=== PATIENT | male | born 1940 | race Two or more races ===

== ENCOUNTER → 2024-03-04 10:37 | Outpatient (REF) | payer OTHER, MEDICARE, SELFPAY ==
[2024-03-04 11:25] LABS: Hematocrit 32.6 % (39.0-52.0); Hemoglobin 9.7 g/dL (13.0-18.0); Mean Corp Hgb Conc. 29.8 g/dL (33.0-37.0); Mean Corpuscular Hgb 23.7 pg (27.0-31.0); Mean Corpuscular Volume 79.7 fL (80.0-94.0); Mean Platelet Volume 10.4 fL (7.4-10.4); Platelet Count 309 10^3/uL (130-400); Red Blood Cell Count 4.09 10^6/uL (4.70-6.10); Red Cell Dist. Width 18.1 % (11.5-14.5); White Blood Cell Count 11.1 10^3/uL (4.8-10.8)
[2024-03-04 11:30] LABS: ALT (SGPT) < 10 U/L (0-50); AST (SGOT) 17 U/L (17-59); Alkaline Phosphatase 56 U/L (38-126); Blood Urea Nitrogen 30 mg/dl (9-20); Calcium 9.1 mg/dl (8.4-10.2); Carbon Dioxide 22 mmol/L (22-30); Chloride 103 mmol/L (98-107); Glucose 157 mg/dl (70-99); Magnesium 1.8 mg/dl (1.6-2.3); Potassium 4.3 mmol/L (3.5-5.1); Sodium 140 mmol/L (135-145); Total Bilirubin 0.6 mg/dl (0.2-1.3); Total Protein 6.6 g/dl (6.3-8.2); eGFR 59.26
[2024-03-04 14:02] LABS: Glycohemoglobin (HgbA1c) 7.5 % (4.0-5.6)
== END ==
LOC: OLABWHC 10:37
PROVIDERS: ATTENDING PHYSICIAN Family Medicine
DX: R68.0 Hypothermia, not associated with low environmental temperature (principal); E11.9 Type 2 diabetes mellitus without complications; I10 Essential (primary) hypertension; I48.0 Paroxysmal atrial fibrillation; I50.33 Acute on chronic diastolic (congestive) heart failure
CPT/HCPCS: 36415; 80053; 83036; 83735; 85027

== ENCOUNTER 2024-03-08 21:54 | Emergency (ER) | payer OTHER, MEDICARE, SELFPAY ==
[2024-03-08 21:55] VITALS: BP 146/73; BMI 24.4
[2024-03-08 21:58] VITALS: BP 146/73
[2024-03-08 22:00] VITALS: BP 138/78
[2024-03-08 22:31] LABS: % Basophils 1.2 % (0-2); % Eosinophils 2.5 % (0-6); % Immature Granulocytes 0.5 % (0-0.5); % Lymphocytes 27.4 % (20.5-51.1); % Monocytes 6.7 % (1.7-9.3); % Neutrophils 61.7 % (42.2-75.2); Absolute Basophils 0.1 10^3/uL (0-0.2); Absolute Eosinophils 0.3 10^3/uL (0-0.7); Absolute Immature Granulocytes 0.1 10^3/uL (0-0.05); Absolute Lymphocytes 2.9 10^3/uL (1.2-3.4); Absolute Monocytes 0.7 10^3/uL (0.1-0.6); Absolute Neutrophils 6.4 10^3/uL (1.4-6.5); Hematocrit 33.2 % (39.0-52.0); Hemoglobin 9.9 g/dL (13.0-18.0); Mean Corp Hgb Conc. 29.8 g/dL (33.0-37.0); Mean Corpuscular Hgb 22.7 pg (27.0-31.0); Mean Platelet Volume 10.3 fL (7.4-10.4); Nucleated Red Blood Cells % 0 % (-); Platelet Count 394 10^3/uL (130-400); Red Blood Cell Count 4.37 10^6/uL (4.70-6.10); Red Cell Dist. Width 18.2 % (11.5-14.5); White Blood Cell Count 10.4 10^3/uL (4.8-10.8)
--- NOTE | 2024-03-08 22:42 | ED.GENMED ---
History of Present Illness
General
Chief Complaint: Breathing Problem
Source: patient
Exam Limitations: none
Time Seen by Provider: 03/08/24 22:36
History of Present Illness
History of Present Illness:
See MDM
Past History
Past History
ED Past Medical History: Arrthythmia and HTN
ED Past Surgical History: None
Social History
Tobacco: Non-smoker
Alcohol: None
Phy Exam
Physical Exam
Physical Exam:
See MDM
Scores
Heart Failure Risk
Heart Failure Risk Score: Yes
History of Stroke or TIA: No
History of intubation for respiratory distress: No
Heart rate on ED arrival >/= 110: No
SaO2 <90% on arrival on room air: Yes
HR >/=110 during 3min walk test (or too ill to perform test): No
ECG has acute ischemic changes: No
Urea >/=12mmol/L (BUN 33.6mg/dL): No
Serum CO2>/=35mmol/L: No
Troponin I or T elevated to [place] Level (0.4mg/dL): No
NT-proBNP >/=5,000ng/L (5,000pg/ml): No
HF Risk Score: 1
Admission Status: MEDIUM RISK 5.1% Consider observation or discharge to home with homecare & f/u visit to PCP/[employer] Architecture Analyst, or SNF for treatment
Course
Orders/Labs/Results
Orders:
Orders
03/08/24 22:10
Electrocardiogram (*1) Urgent
Reason for Study: Chest Pain
Cardiac Monitoring- Treatment ONCE
EKG- Treatment ONCE
IV Insert/Care/Rem.- Treatment PRN
O2 Therapy [RESP] Urgent
Titrate/Wean O2 to maintain O2 sat greater than (%): 90
Special Instructions: Maintain sats >/=90%
Pulse Ox/spot Check [RESP] Urgent
Quantity: 1
Special Instructions: ON ROOM AIR
03/08/24 22:21
BNP [NT-proBNP] Urgent
Complete Blood Count/With Diff Urgent
Troponin I Urgent
03/08/24 22:42
CR Chest - 2 Views Urgent
Comment:
Reason For Exam: SOB, cough
03/08/24 22:47
Comprehensive Metabolic Panel Urgent
Abnormal Lab Results
03/08/24 03/08/24
22:21 22:47
RBC 4.37 L 10^6/uL
(4.70-6.10)
Hgb 9.9 L g/dL
(13.0-18.0)
Hct 33.2 L %
(39.0-52.0)
MCV 76.0 L fL
(80.0-94.0)
MCH 22.7 L pg
(27.0-31.0)
MCHC 29.8 L g/dL
(33.0-37.0)
RDW 18.2 H %
(11.5-14.5)
Abs Immat Gran (auto) 0.1 H 10^3/uL
(0-0.05)
Absolute Monos (auto) 0.7 H 10^3/uL
(0.1-0.6)
Carbon Dioxide 18 L mmol/L
(22-30)
BUN 27 H mg/dl
(9-20)
Glucose 231 H mg/dl
(70-99)
03/08/24 22:21
03/08/24 22:47
Vital Signs
Initial and Last Documented VS:
Initial Vital Signs
Temp Pulse Resp BP Pulse Ox
97.8 F 91 27 146/73 98
03/08/24 21:55 03/08/24 21:55 03/08/24 21:55 03/08/24 21:55 03/08/24 21:55
Last Documented Vital Signs
Temp Pulse Resp BP Pulse Ox
97.8 F 92 26 144/73 92
03/08/24 21:55 03/09/24 00:15 03/09/24 00:15 03/09/24 00:00 03/09/24 00:15
MDM/Problems Addressed
Differential Diagnosis Includes:
HPI and MDM Narrative:
83-year-old male presenting for evaluation of shortness of breath. Patient states he was complaining of shortness of breath earlier but symptoms have resolved. He is normally on 2 L nasal cannula. EMS stating that the facility had increase his
oxygen to 6 L. Patient is on 2 L currently and not hypoxic. Patient is in no respiratory distress. He denies leg swelling, cough or fever. Patient appears confused why he was sent to the emergency department but states he feels comfortable going
home. Will obtain basic blood work and chest x-ray
Physical exam
General: Well appearing and non-toxic. Sitting in bed comfortably and in no acute distress
HEENT: protecting airway
Neck: appears supple
CV: No evidence of cyanosis. Regular rate, irregular rhythm
Resp: No accessory muscle use. Lungs appear clear
Abd: Non-distended
Extremities: No deformities. No leg edema
Neuro: alert
Psych: Normal affect
Skin: Intact
Problems Addressed including Acute and Chronic Conditions affecting care:
1. Resolving shortness of breath
Acuity: acute
Prognosis: stable
Details: Given his history, will obtain chest x-ray. EKG shows A-fib. Prior history indicates history of A-fib. Since he has a history of congestive heart failure, will obtain chest x-ray, troponin and BNP
Updates
Chest x-ray without evidence of pneumonia or pleural effusions. Patient remains well-appearing nontoxic. We discussed lab abnormalities including anemia and mildly elevated BNP. It is unsure what his baseline is. Regardless, he is in no acute
distress. Discussed having this reassessed by his primary
On multiple reassessments, patient was asleep. When he woke up, he ambulated to the bathroom without difficulty and without hypoxia
Differential Diagnosis (but not limited to): Pneumonia, viral syndrome, A-fib, congestive heart
Testing considered: Blood cultures but he is afebrile
Drug therapy (if applicable): OTC meds, please see d/c instruction regarding Rx drugs
Amount and/or Complexity of Data Reviewed
Clinical info obtained from: Patient
External data reviewed: N/A
Labs I independently reviewed (but not limited to): White blood cell count normal
Radiology: X-ray independently reviewed: Chest x-ray clear
Pulse Ox: not hypoxic
EKG independently reviewed: A-fib, normal axis, no STEMI
[employer]: A-fib
Critical Care: N/A
Risk of Complication:
Social Determinants of health: Good social support
Discussed with other providers: N/A
Escalation of Care includes Admit/Obs: After being observed in the Emergency Department, pt stable for discharge.
Occasional wrong word or 'sound a like' substitutions may have occurred due to the inherent limitations of voice recognition software. Read the chart carefully and recognize, using context, where substitutions have occurred.
*Critical Care Note
Total Time (30-74mins, 75-104mins- exclusive of procedures): Not Applicable
ED Attending Note
-
Portions of this chart may have been created with voice recognition software.� Occasional wrong word or��sound alike� substitutions may have occurred due to the inherent limitations of voice recognition software.
Discharge Plan
Departure
Patient Disposition: Home (Routine Discharge)
Date of Disposition: 03/09/24
Time of Disposition: 00:00
Patient with high blood pressure during this ER visit?: No
Discharge Problem:
Acute dyspnea
Prescriptions:
No Action
atorvastatin 10 mg Tablet
5 mg PO DAILY
acetaminophen 650 mg Tablet
650 mg PO Q4H PRN (Reason: pain/temp)
carvedilol 3.125 mg Tablet
3.125 mg PO BID
magnesium hydroxide [Milk of Magnesia] 400 mg/5 mL Suspension
30 ml PO PRN PRN (Reason: no bm x 2 days)
tamsulosin [Flomax] 0.4 mg Capsule
0.4 mg PO DAILY
bisacodyl [Dulcolax (bisacodyl)] 10 mg Suppository
10 mg AK DAILY PRN (Reason: constipation)
pantoprazole 40 mg Tablet,Delayed Release (Dr/Ec)
40 mg PO BID
ferrous sulfate 325 mg (65 mg iron) Tablet
325 mg PO DAILY
Rx Instructions:
every sun, sun, sunday
metformin 1,000 mg Tablet
1,000 mg PO BID
Fleet Enema 19-7 gram/118 mL Enema
118 ml AK ONCE
furosemide 20 mg Tablet
20 mg PO DAILY
albuterol sulfate 90 mcg/actuation Hfa Aerosol Inhaler
2 puff INHALATION 6XD PRN (Reason: sob)
insulin glargine 100 unit/mL (3 mL) Insulin Pen
15 unit SC DAILY
Rx Instructions:
for hyperglycemia
cholecalciferol (vitamin D3) 50 mcg (2,000 unit) Capsule
50 mcg PO DAILY
Eliquis 5 mg Tablet
5 mg PO BID
empagliflozin 25 mg Tablet
25 mg PO DAILY
Referrals:
Romero Alberts MD [Family Provider] -
Activity Restrictions/Additional Instructions:
The chest x-ray was clear. There is no evidence of pneumonia or fluid.
Please return for any worsening symptoms.
You may return at any time if you have further concerns.
Please follow up with your doctor at the first available appointment, preferably this week. Please discuss your lab abnormalities including mild anemia with a hemoglobin level of 9.9, elevated blood sugar of 231 and elevated proBNP (heart failure
test) 2089.
Thank you for choosing [facility].
Interventions
Interventions:
*Risk Screen - Suicide Last Done: 03/08/24 22:12
*General Assessment Last Done: 03/08/24 21:55
*Neglect/Abuse Screening Last Done: 03/08/24 21:55
ED- Fall Risk Assessment Last Done: 03/08/24 21:55
ED- Cardiac Assessment Last Done: 03/08/24 22:12
ED- Pulmonary Assessment Last Done: 03/08/24 22:12
Discharge Date and Time
Print Language: FIJIAN
[2024-03-08 22:56] LABS: NT-proBNP 2090 pg/ml; Troponin I < 0.012 ng/ml
[2024-03-08 23:00] VITALS: BP 124/67
[2024-03-08 23:08] LABS: ALT (SGPT) 13 U/L (0-50); AST (SGOT) 21 U/L (17-59); Alkaline Phosphatase 52 U/L (38-126); Blood Urea Nitrogen 27 mg/dl (9-20); Calcium 9.3 mg/dl (8.4-10.2); Carbon Dioxide 18 mmol/L (22-30); Chloride 103 mmol/L (98-107); Estimated Creatinine Clearance 51 ml/min; Glucose 231 mg/dl (70-99); Potassium 4.6 mmol/L (3.5-5.1); Sodium 139 mmol/L (135-145); Total Bilirubin 0.5 mg/dl (0.2-1.3); Total Protein 6.7 g/dl (6.3-8.2); eGFR > 60.00
[2024-03-09] VITALS (11 sets, daily range): BP systolic 134–156; BP diastolic 60–95
== END 2024-03-09 09:59 | disposition home or self-care (01) ==
LOC: EMR 21:54
PROVIDERS: EMERGENCY PHYSICIAN Student in an Organized Health Care Education/Training Program; FAMILY PHYSICIAN Internal Medicine
DX: R06.09 Other forms of dyspnea (principal); I48.91 Unspecified atrial fibrillation; I50.9 Heart failure, unspecified; Z87.01 Personal history of pneumonia (recurrent); Z79.01 Long term (current) use of anticoagulants
CPT/HCPCS: 99284; 94760; 71046; 80053; 83880; 84484; 85025; 93005